=== PATIENT | male | born 1960 | race African-American/Black ===

== ENCOUNTER 2024-02-19 18:35 | Emergency (ER) | payer OTHER ==
[~2024-02-19] VITALS: Ht 188 cm; Wt 125.2 kg
[2024-02-19 18:42] VITALS: BP 157/91; PULSE 70; RESP 18; TEMP 98.5; O2SAT 95
[2024-02-19] MEDS ORDERED: NS 1000ML 1,000 ML ONE (19:23)
[2024-02-19] MEDS ORDERED: DEMEROL ONE (19:23)
[2024-02-19] MEDS ORDERED: ZOFRAN ONE (19:23)
[2024-02-19] MEDS: DEMEROL IV STA (19:26)
[2024-02-19] MEDS: ZOFRAN IV STA (19:27)
[2024-02-19] MEDS: NS 1000ML 1,000 ML IV STA (19:27)
[2024-02-19 19:42] VITALS: BP 152/85; PULSE 69; RESP 18; TEMP 98.5; O2SAT 98
[2024-02-19 20:05] LABS: BASOPHIL % 0.2 % (0.2-1.2); HEMATOCRIT(ML) 43.8 % (37.0-53.0); HEMOGLOBIN 14.2 g/dL (13.9-16.3); LYMPHOCYTES # 1.01 10^3/uL1 (1.0-4.8); LYMPHOCYTES % 8.3 % (24.0-44.0); MEAN CORP HGB 29.6 pg (26-34); MEAN CORP HGB CONCENTRATION 32.4 g/dL (33-36.5); MEAN CORP VOLUME 91.3 fL (78-100); MONOCYTES # 0.7 10^3/uL (0.3-0.8); MONOCYTES % 5.7 % (5.0-12.0); NEUTROPHIL # 10.4 10^3/uL (1.8-7.7); NEUTROPHILS % 85.6 % (41.0-85.0); PLATELET COUNT 277 10^3/uL (150-400); RED CELL DISTRIBUTION WIDTH 12.6 % (11.5-14.5); WHITE BLOOD CELL 12.2 10^3/uL (4.5-11.0)
[2024-02-19 20:09] LABS: +ADD MANUAL DIFF(NO CHRG) NO
[2024-02-19 20:24] LABS: ALBUMIN(ML) 3.6 g/dL (3.4-5.0); ALBUMIN/GLOBULIN RATIO 1.028; ANION GAP 12.7; BUN/CREATININE RATIO 7.4 (10.0-20.0); CALCIUM 8.2 mg/dL (8.4-10.5); CARBON DIOXIDE 23.7 mmol/L (20.0-32); CREATININE SERUM 1.35 mg/dL (0.59-1.40); EST GFR, NON-AA 53.6 (>/=60); POTASSIUM 3.4 mmol/L (3.6-5.2)
[2024-02-19 20:42] VITALS: BP 161/89; PULSE 62; RESP 18; TEMP 98.5; O2SAT 98
[2024-02-19 20:53] LABS: BILIRUBIN,URINE NEGATIVE (NEGATIVE); LEUKOCYTE ESTERASE ,URINE NEGATIVE (NEGATIVE); NITRATE,URINE NEGATIVE (NEGATIVE); PH,URINE 7.5 (4.5-8.0)
[2024-02-19 20:56] LABS: APPEARANCE,URINE CLEAR; UA COLOR YELLOW
[2024-02-19 21:17] VITALS: BP 158/59; PULSE 77; RESP 18; TEMP 98.5; O2SAT 99
[2024-02-19] MEDS ORDERED: FLOMAX PO ONE (21:26)
[2024-02-19] MEDS ORDERED: TORADOL ONE (21:26)
[2024-02-19] MEDS: TORADOL IV STA (21:30)
[2024-02-19] MEDS: FLOMAX PO STA (21:30)
== END 2024-02-19 21:39 | disposition home or self-care (01) ==
LOC: ER 18:35
DX: N13.2 Hydronephrosis with renal and ureteral calculous obstruction (principal); E78.00 Pure hypercholesterolemia, unspecified; I10 Essential (primary) hypertension
CPT/HCPCS: 99285; 74176; 96374; 96375; 96361; 80053; 85025; 36415; 81001; J7030; J2175; J2405; J1885; J8499